=== PATIENT | male | born 1985 | race Caucasian/White ===

== ENCOUNTER 2023-09-27 02:02 | Emergency (ER) | payer SELFPAY ==
[2023-09-27 08:15] LABS: Albumin 3.2 g/dL (3.4-5.0); Albumin/Globulin Ratio 0.7 (1.1-1.8); Anion Gap 5.3 mEq/L (5.0-15.0); Bilirubin Total 0.5 mg/dL (0.2-1.0); Globulin 4.3 g/dL (2.3-3.5); Potassium 3.3 mEq/L (3.5-5.1); Protein, Total 7.5 g/dL (6.4-8.2)
[2023-09-27 08:33] LABS: Absolute Eosinophils 0.1 K/uL (0-0.5); Absolute Lymphocytes (CBC) 1.4 K/uL (0.7-4.9); Absolute Monocytes 0.9 K/uL (0.1-1.3); Absolute Neutrophil 6.6 K/uL (1.8-8.0); Basophils % 0.5 % (0-1.3); Eosinophils % 1.3 % (0-4.4); Hematocrit 36.4 % (39.6-49.0); Hemoglobin 13.1 g/dL (13.6-17.9); Lymphocytes % 15.7 % (15.3-44.8); MCH 30.6 pg (27.0-35.0); MCHC 36.1 g/dL (32.0-36.0); MPV 7.8 fL (7.6-11.3); Monocytes % 9.7 % (3.3-12.3); Neutrophils % 72.8 % (41.7-73.7); PTT, Activated Partial Thromb 32.2 SECONDS (24.3-36.9); Platelets 278 thou/uL (152-406); Protime INR 1.35; RBC Red Blood Cell Count 4.29 M/uL (4.33-5.43)
--- NOTE | 2023-09-27 17:05 | ER ---
Nurse's Notes [facility] Name: León Wayne Age: 37 yrs Sex: Male : 1985 Arrival Date: 09/27/2023 Time: 02:02 Bed 8 Private MD: Diagnosis: Cellulitis of right upper extremity Presentation: 09/26 02:05 Chief complaint: Patient states: ABSCESS TO RIGHT FOREARM STARTED LAST NIGHT. jj7 Coronavirus screen: At this time, the client does not indicate any symptoms associated with coronavirus-19. Ebola Screen: No symptoms or risks identified at this time. Initial Sepsis Screen: Does the patient meet any 2 criteria? HR > 90 bpm. Yes Does the patient have a suspected source of infection? No. Patient's initial sepsis screen is negative. Risk Assessment: Do you want to hurt yourself or someone else? Patient reports no desire to harm self or others. Onset of symptoms was September 26, 2023. 02:05 Method Of Arrival: Ambulatory j7 02:05 Acuity: GABINO 4 jj7 Triage Assessment: 02:09 General: Appears in no apparent distress. comfortable, Behavior is calm, cooperative, jj7 appropriate for age. Pain: Complains of pain in dorsal aspect of right forearm Pain currently is 6 out of 10 on a pain scale. Derm: Abscess located on dorsal aspect of right forearm. 02:20 Bite description: bite sustained to dorsal aspect of right forearm by insect, animal ha1 information: vaccination(s) is not applicable. Historical: - Allergies: 02:09 No Known Allergies; jj7 - PMHx: 02:09 None; jj7 - PSHx: 02:09 None; jj7 - Immunization history:: Adult Immunizations not up to date, Client reports having NOT received the Covid vaccine. Flu vaccine is up to date. - Infectious Disease History:: Denies. - Social history:: Smoking status: Reported history of juuling and/or vaping. Patient uses street drugs, marijuana, Patient/guardian denies using alcohol. - Family history:: not pertinent. Screenin:[address] [facility] ED Fall Risk Assessment (Adult) History of falling in the last 3 months, jj7 including since admission No falls in past 3 months (0 pts) Confusion or Disorientation No (0 pts) Intoxicated or Sedated No (0 pts) Impaired Gait No (0 pts) Mobility Assist Device Used No (0 pt) Altered Elimination No (0 pt) Score/Fall Risk Level 0 - 2 = Low Risk Oriented to surroundings, Maintained a safe environment, Educated pt \T\ family on fall prevention, incl call for assistance when getting out of bed. Abuse screen: Denies threats or abuse. Nutritional screening: No deficits noted. Tuberculosis screening: No symptoms or risk factors identified. Assessment: 02:12 General: Appears uncomfortable, Behavior is calm, cooperative. Pain: Complains of pain ha1 in right arm Pain does not radiate. Pain currently is 8 out of 10 on a pain scale. Quality of pain is described as aching. Neuro: Level of Consciousness is awake, alert, obeys commands, Oriented to person, place, time, situation. Cardiovascular: Capillary refill < 3 seconds Patient's skin is warm and dry. Respiratory: Airway is patent Respiratory effort is even, unlabored, Respiratory pattern is regular, symmetrical. GI: No signs and/or symptoms were reported involving the gastrointestinal system. Abdomen is flat, non-distended. Derm: Skin insect bite at the right forearm. swelling, redness. No drainage Skin is normal. 02:12 Musculoskeletal: Circulation, motion, and sensation intact. ha1 03:24 Reassessment: Patient appears in no apparent distress at this time. No changes from [facility] previously documented assessment. Patient and/or family updated on plan of care and expected duration. Pain level reassessed. Patient is alert, oriented x 3, equal unlabored respirations, skin warm/dry/pink. 04:30 Reassessment: Patient appears in no apparent distress at this time. No changes from [facility] previously documented assessment. Patient and/or family updated on plan of care and expected duration. Pain level reassessed. Patient is alert, oriented x 3, equal unlabored respirations, skin warm/dry/pink. 05:26 Reassessment: Patient appears in no apparent distress at this time. Patient and/or jw7 family updated on plan of care and expected duration. Pain level reassessed. Patient is alert, oriented x 3, equal unlabored respirations, skin warm/dry/pink. Patient states symptoms have improved. Vital Signs: 02:05 BP 114 / 76; Pulse 117; Resp 16; Temp 99.2; Pulse Ox 98% ; Weight 68.04 kg; Height 5 j ft. 10 in. ; Pain 6/10; 03:22 BP 120 / 67; Pulse 99; Resp 17 S; Pulse Ox 100% on R/A; ha1 04:00 BP 118 / 69; Pulse 90; Resp 19 S; Pulse Ox 98% on R/A; jw7 05:30 BP 120 / 68; Pulse 91; Resp 18 S; Temp 99.3(O); Pulse Ox 100% on R/A; jw7 02:05 Body Mass Index 21.52 (68.04 kg, 177.8 cm) jj7 02:05 Pain Scale: Adult [facility] ED Course: 02:02 Patient arrived in ED. jj6 02:08 Claudio Cuevas MD is Attending Physician. rt 02:09 Triage completed. jj7 02:09 Arm band placed on right wrist. jj7 02:12 Patient has correct armband on for positive identification. Placed in gown. Bed in low ha1 position. Call light in reach. Side rails up X 1. 02:30 Provided Education on: use of call light. jw7 02:45 Inserted saline lock: 20 gauge in left antecubital area, using aseptic technique. Blood ha1 collected. Flushed with 10 mL NS. 04:25 Gregor Vicente MD is Hospitalizing Provider. rt 04:52 No provider procedures requiring assistance completed. Patient admitted, IV remains in jw7 place. 05:47 IV discontinued, intact, bleeding controlled, No redness/swelling at site. Pressure jw7 dressing applied. Administered Medications: 03:01 Drug: vancoMYCIN IVPB 1 grams IVPB once over 2 hrs Route: IVPB; Infused Over: 2 hrs; jw7 Site: left antecubital; 05:47 Follow up: Response: No adverse reaction; IV Status: Completed infusion; IV Intake: jw7 250ml 03:01 Drug: Ketorolac IVP 15 mg IVP once Route: IVP; Site: left antecubital; jw7 04:51 Follow up: Response: No adverse reaction; Marked relief of symptoms; Pain is decreased jw7 03:01 Drug: NS 0.9% IV 1000 ml IV at 1 bolus Per protocol; 1000 mL bolus Route: IV; Rate: 1 jw7 bolus; Site: left antecubital; 04:51 Follow up: Response: No adverse reaction; IV Status: Completed infusion; IV Intake: jw7 1000ml 04:51 Drug: Nicoderm CQ Transdermal Patch 21 mg/24 hr 1 patches Transdermal once Route: jw7 Transdermal; Site: affected area; Medication: 02:11 VIS not applicable for this client. jj7 Intake: 04:51 IV: 1000ml; Total: 1000ml. jw7 05:47 IV: 250ml; Total: 1250ml. jw7 Outcome: 04:25 Decision to Hospitalize by Provider. rt 04:52 Admitted to ER Hold. Please see [facility] for further documentation. jw7 04:52 Condition: stable 04:52 Instructed on the need for admit, Demonstrated understanding of instructions, 05:26 Discharge ordered by MD. rt 05:46 Discharged to home ambulatory, jw7 05:46 Condition: stable 05:46 Discharge instructions given to patient, Instructed on discharge instructions, follow up and referral plans. medication usage, Demonstrated understanding of instructions, follow-up care, medications, 05:47 Patient left the ED. jw7 Signatures: Marine Reedj6 Rosa Aguirre RN RN jw7 Sandra Barnhart RN RN ha1 Rosalba Miranda RN RN jj7 Claudio Cuevas MD MD rt
--- NOTE | 2023-09-27 17:05 | EDPHYS ---
Physician Documentation [facility] Name: León Wayne Age: 37 yrs Sex: Male : 1985 Arrival Date: 09/27/2023 Time: 02:02 Bed 8 Private MD: ED Physician Claudio Cuevas HPI: 09/26 03:02 This 37 yrs old Male presents to ER via Ambulatory with complaints of Insect Bite. rt 03:02 Patient presents to the ED with reported abscess to the right forearm starting rt yesterday. Patient expressed a large amount of pus from it. States that today, he noticed significant proximal redness, swelling. Denies other acute complaints at this time, symptoms are moderate in severity, no other aggravating or alleviating factors.. Historical: - Allergies: 02:09 No Known Allergies; jj7 - PMHx: 02:09 None; jj7 - PSHx: 02:09 None; jj7 - Immunization history:: Adult Immunizations not up to date, Client reports having NOT received the Covid vaccine. Flu vaccine is up to date. - Infectious Disease History:: Denies. - Social history:: Smoking status: Reported history of juuling and/or vaping. Patient uses street drugs, marijuana, Patient/guardian denies using alcohol. - Family history:: not pertinent. ROS: 03:02 Constitutional: Negative for fever, chills, and weight loss, Cardiovascular: Negative rt for chest pain, palpitations, and edema, Respiratory: Negative for shortness of breath, cough, wheezing, and pleuritic chest pain, Abdomen/GI: Negative for abdominal pain, nausea, vomiting, diarrhea, and constipation, Neuro: Negative for headache, weakness, numbness, tingling, and seizure, 03:02 Skin: Positive for abscess, cellulitis, Exam: 03:02 Constitutional: This is a well developed, well nourished patient who is awake, alert, rt and in no acute distress. Head/Face: Normocephalic, atraumatic. Chest/axilla: Normal chest wall appearance and motion. Nontender with no deformity. No lesions are appreciated. Cardiovascular: Regular rate and rhythm with a normal S1 and S2. No gallops, murmurs, or rubs. Normal PMI, no JVD. No pulse deficits. Respiratory: Lungs have equal breath sounds bilaterally, clear to auscultation and percussion. No rales, rhonchi or wheezes noted. No increased work of breathing, no retractions or nasal flaring. Abdomen/GI: Soft, non-tender, with normal bowel sounds. No distension or tympany. No guarding or rebound. No evidence of tenderness throughout. Neuro: Awake and alert, GCS 15, oriented to person, place, time, and situation. Cranial nerves II-XII grossly intact. Motor strength 5/5 in all extremities. Sensory grossly intact. Cerebellar exam normal. Normal gait. 03:02 ECG was reviewed by the Attending Physician. 03:02 Skin: Apparently drained abscess to the right forearm, there is surrounding cellulitis involving most of the forearm. No fluctuance, signs of drainable abscess. Vital Signs: 02:05 BP 114 / 76; Pulse 117; Resp 16; Temp 99.2; Pulse Ox 98% ; Weight 68.04 kg; Height 5 jj7 ft. 10 in. ; Pain 6/10; 03:22 BP 120 / 67; Pulse 99; Resp 17 S; Pulse Ox 100% on R/A; ha1 04:00 BP 118 / 69; Pulse 90; Resp 19 S; Pulse Ox 98% on R/A; jw7 05:30 BP 120 / 68; Pulse 91; Resp 18 S; Temp 99.3(O); Pulse Ox 100% on R/A; jw7 02:05 Body Mass Index 21.52 (68.04 kg, 177.8 cm) jj7 02:05 Pain Scale: Adult jj7 Procedures: 03:02 Ultrasound: Type: Soft tissue skin, performed by the emergency department physician, rt Bedside ultrasound reveals cobblestoning, no drainable abscess. MDM: 02:13 Patient medically screened. rt 04:25 Differential Diagnosis Cellulitis, abscess. Data reviewed: vital signs, nurses notes, rt lab test result(s), EKG. Consideration of Admission/Observation Patient was admitted/placed on observation. Management of patient was discussed with the following: Hospitalist: Agrees to admit. I considered the following discharge prescriptions or medication management in the emergency department Medications were administered in the Emergency Department. See MAR. Test considered but Not performed: CT: Low suspicion for necrotizing fasciitis, CT scan not indicated. Care significantly affected by the following Social Determinants of Health: Misuse of alcohol and/or drugs. Counseling: I had a detailed discussion with the patient and/or guardian regarding the historical points, exam findings, and any diagnostic results supporting the discharge/admit diagnosis, lab results, the need for further work-up and treatment in the hospital. Response to treatment: the patient's symptoms have mildly improved after treatment. 05:27 ED course: Hospitalist consulted for admission, during that evaluation, patient stated rt that he did not wish stay in the hospital and had to gather things and take care of his child. Patient states that he will return once he is able to take care of some things at home, patient understands risks of leaving and has decision-making capacity.. 09/26 02:18 Order name: Accucheck; Complete Time: :34 rt 09/26 02:18 Order name: Cardiac monitoring; Complete Time: :34 rt 09/26 02:18 Order name: EKG - Nurse/Tech; Complete Time: :34 rt 09/26 02:18 Order name: IV Saline Lock - Large Bore; Complete Time: :34 rt 09/26 02:18 Order name: Labs collected and sent; Complete Time: :34 rt 09/26 02:18 Order name: O2 Per Protocol; Complete Time: 02:35 rt 09/26 02:18 Order name: O2 Sat Monitoring; Complete Time: :35 rt 09/26 02:18 Order name: Vital Signs; Complete Time: 02:35 rt EC:02 Rate is 104 beats/min. Rhythm is regular, Sinus tachycardia with No ectopy. QRS [place] is rt Normal. [place] interval is normal. QRS interval is normal. QT interval is normal. No Q waves. T waves are Normal. No ST changes noted. Administered Medications: 03:01 Drug: vancoMYCIN IVPB 1 grams IVPB once over 2 hrs Route: IVPB; Infused Over: 2 hrs; jw7 Site: left antecubital; 05:47 Follow up: Response: No adverse reaction; IV Status: Completed infusion; IV Intake: jw7 250ml 03:01 Drug: Ketorolac IVP 15 mg IVP once Route: IVP; Site: left antecubital; jw7 04:51 Follow up: Response: No adverse reaction; Marked relief of symptoms; Pain is decreased jw7 03:01 Drug: NS 0.9% IV 1000 ml IV at 1 bolus Per protocol; 1000 mL bolus Route: IV; Rate: 1 jw7 bolus; Site: left antecubital; 04:51 Follow up: Response: No adverse reaction; IV Status: Completed infusion; IV Intake: jw7 1000ml 04:51 Drug: Nicoderm CQ Transdermal Patch 21 mg/24 hr 1 patches Transdermal once Route: jw7 Transdermal; Site: affected area; Disposition Summary: 09/27/23 05:26 Discharge Ordered Notes: Location: Home(09/27/23 05:26) rt Problem: new(09/27/23 05:26) rt Symptoms: are unchanged(09/27/23 05:26) rt Condition: Stable(09/27/23 05:) rt Diagnosis - Cellulitis of right upper extremity rt Followup: rt - With: Private Physician - When: 2 - 3 days - Reason: Discharge Instructions: - Discharge Summary Sheet rt - Cellulitis, Adult rt Forms: - Medication Reconciliation Form rt - Antibiotic Education rt - Prescription Opioid Use rt - Patient Portal Instructions rt - Leadership Thank You Letter rt Prescriptions: - Doxycycline Hyclate 100 mg Oral Tablet - take 1 tablet ORAL route every 12 hours; 20 tablet; Refills: 0, Product rt Selection Permitted Signatures: Era Bravo RN RN vc1 Rosa Aguirre RN RN jw7 Rosalba Miranda RN RN jj7 Claudio Cuevas MD MD rt Corrections: (The following items were deleted from the chart) 04: 04:25 Telemetry/MedSurg (Inpatient) rt vc1 04:41 04:25 rt vc1 05: 04:25 Inpatient Admission rt rt 05: 04:25 Gregor Vicente rt rt 05: 04:25 Stable rt rt 05: 04:25 new rt rt 05: 04:25 are unchanged rt rt 05: 04:25 Standard rt rt 05: 04:25 Cellulitis to right upper extremity rt rt 05: 04:41 [facility] ER HOLD vc1 rt 05: 04:41 ERHOLD- vc1 rt
[2023-09-28 00:34] VITALS: BP 120/68; TEMP 99.3; O2SAT 100
--- NOTE | 2023-09-29 13:14 | EKG ---
Test Date: 2023-09-27 Test Time: 02:31:14 Relief Operator: ELIZABETH MEASUREMENT RESULTS: Intervals: Rate: 104 LA: 138 QRSD: 92 QT: 328 QTc: 431 [place]: P: 63 LA: 138 QRS: 103 T: 50 INTERPRETIVE STATEMENTS: Sinus tachycardia Otherwise normal ECG No previous ECG available for comparison Electronically Signed On 09-29-23 13:06:39 CDT by Antonio Lamb
== END 2023-09-27 05:47 | disposition home or self-care (01) ==
LOC: ER 02:02
DX: L03.113 Cellulitis of right upper limb (principal)
CPT/HCPCS: 36415; 80053; 83605; 85025; 85610; 85730; 87040; 93005; 96365; 96366; 96375; 99285

== ENCOUNTER 2023-09-28 18:38 | Emergency (ER) | payer SELFPAY ==
--- NOTE | 2023-09-28 19:59 | RAD REPORT ---
EXAM DESCRIPTION: RAD - Chest Single View - 09/28/2023 7:48 pm CLINICAL HISTORY: CHEST PAIN COMPARISON: No comparisons FINDINGS: Lines: None. Lungs: No evidence of edema or pneumonia. Pleural: No significant pleural effusions or pneumothorax. Cardiac: The heart size is within normal limits. Mediastinum: Within normal limits. Bones: No acute fractures. Other: None IMPRESSION: No acute cardiopulmonary disease.
[2023-09-28 21:01] LABS: Absolute Basophils 0.1 K/uL (0-0.5); Absolute Eosinophils 0.3 K/uL (0-0.5); Absolute Lymphocytes (CBC) 1.9 K/uL (0.7-4.9); Absolute Monocytes 0.8 K/uL (0.1-1.3); Absolute Neutrophil 6.3 K/uL (1.8-8.0); Basophils % 0.7 % (0-1.3); Eosinophils % 2.8 % (0-4.4); Hematocrit 36.4 % (39.6-49.0); Hemoglobin 12.4 g/dL (13.6-17.9); Lymphocytes % 20.3 % (15.3-44.8); MCH 29.5 pg (27.0-35.0); MCHC 34.2 g/dL (32.0-36.0); MCV 86.3 fL (80-100); MPV 7.3 fL (7.6-11.3); Monocytes % 8.5 % (3.3-12.3); Neutrophils % 67.7 % (41.7-73.7); Platelets 306 thou/uL (152-406); RBC Red Blood Cell Count 4.21 M/uL (4.33-5.43); Red Cell Distribution Width 12.9 % (12.1-15.2)
[2023-09-28] MEDS ORDERED: DOXYCYCLINE 100 MG CAP PO ONE (21:12)
[2023-09-28 21:37] LABS: BUN Blood Urea Nitrogen 7 mg/dL (7-18); Bicarbonate 30 mEq/L (21-32); Glomerular Filtration Rate 121 ml/min (=/>90); Glucose Level 103 mg/dL (74-106); NT PRO-BNP 193 pg/mL (<125); Sodium Level 135 mEq/L (136-145)
[2023-09-28 21:40] LABS: Troponin High Sensitivity < 3.0 pg/mL (<58.9)
[2023-09-28] MEDS ORDERED: POTASSIUM CL SA 10 MEQ TAB PO ONE (21:45)
--- NOTE | 2023-09-28 21:55 | EDPHYS ---
Physician Documentation [facility] Name: León Wayne Age: 37 yrs Sex: Male : 1985 Arrival Date: 09/28/2023 Time: 18:38 Bed 20 Private MD: ED Physician Niko Goel HPI: 09/27 19:01 This 37 yrs old Male presents to ER via Unassigned with complaints of Insect Bite. kb 19:03 Pt is a 37 year old male who presents for abscess to right forearm that started 4 days kb ago with erythema and swelling. States he was seen a couple of days ago and prescribed an antibiotic but hasn't been able to pick it up yet. States it started draining yesterday. Today he was taking a nap and woke up to a sharp pain in the right chest and felt like he couldn't breathe so he came in to be evaluated for that. . Historical: - Allergies: 19:06 No Known Allergies; cm10 - Home Meds: 19:06 None [Active]; cm10 - PMHx: 19:06 None; cm10 - PSHx: 19:06 None; cm10 - Immunization history:: Adult Immunizations up to date. - Infectious Disease History:: Denies. - Social history:: Smoking status: Patient reports the use of cigarette tobacco products, smokes one pack cigarettes per day. ROS: 19:01 Constitutional: As per HPI kb Exam: 19:01 Constitutional: This is a well developed, well nourished patient who is awake, alert, kb and in no acute distress. Head/Face: Normocephalic, atraumatic. ENT: Moist Mucous membranes Cardiovascular: Regular rate Respiratory: Respirations even and unlabored. No increased work of breathing. Talking in full sentences MS/ Extremity: Pulses equal, no cyanosis. Neurovascular intact. Full, normal range of motion. Neuro: Awake and alert, GCS 15, oriented to person, place, time, and situation. Moves all extremities. Normal gait. 19:01 Skin: abscess, that is moderate sized, of the right forearm, with drainage, with induration, with surrounding cellulitis, that is very mild, 21:24 ECG was reviewed by the Attending Physician. kb Vital Signs: 19:03 Weight 68.04 kg; Height 5 ft. 10 in. ; Pain 3/10; cm10 21:08 BP 101 / 76; Pulse 94; Resp 17; Pulse Ox 100% ; Pain 4/10; tm6 21:14 Temp 98.2(O); tm6 22:03 BP 107 / 76; Pulse 92; Resp 17; Temp 98.2; Pulse Ox 100% on R/A; Pain 0/10; tm6 19:03 Body Mass Index 21.52 (68.04 kg, 177.8 cm) cm10 19:03 Pain Scale: Adult cm10 21:08 Pain Scale: Adult tm6 22:03 Pain Scale: Adult tm6 MDM: 18:58 Patient medically screened. kb 19:02 Differential diagnosis: abscess, allergic reaction, cellulitis, insect bite. Data kb reviewed: vital signs, nurses notes. 21:54 Counseling: I had a detailed discussion with the patient and/or guardian regarding the kb historical points, exam findings, and any diagnostic results supporting the discharge/admit diagnosis, lab results, radiology results, the need for outpatient follow up, a family practitioner, to return to the emergency department if symptoms worsen or persist or if there are any questions or concerns that arise at home. ED course: Pt educated to orange picker and take antibiotics previously prescribed. . 09/27 19:10 Order name: CBC with Diff; Complete Time: 21:10 kb 09/27 19:10 Order name: Basic Metabolic Panel; Complete Time: 21:40 kb 09/27 19:10 Order name: Troponin High Sensitivity; Complete Time: 21:40 kb 09/27 19:10 Order name: BNP; Complete Time: 21:40 kb 09/27 19:10 Order name: Chest Single View XRAY; Complete Time: 20:05 kb 09/27 19:10 Order name: EKG; Complete Time: 19:11 kb 09/27 19:10 Order name: IV Start; Complete Time: 21:10 kb 09/27 19:10 Order name: EKG - Nurse/Tech; Complete Time: 21:07 kb EC:24 Rate is 96 beats/min. Rhythm is regular. QRS [place] is Normal. [place] interval is normal at kb 136 msec. QRS interval is normal at 86 msec. QT interval is normal at 429 msec. Administered Medications: 21:14 Drug: Doxycycline PO 100 mg PO once Route: PO; tm6 21:48 Drug: Potassium Chloride PO 40 mEq PO once Route: PO; tm6 Disposition Summary: 09/28/23 21:55 Discharge Ordered Notes: Location: Home kb Condition: Stable kb Diagnosis - Cutaneous abscess of right upper limb kb Followup: kb - With: Emergency Department - When: As needed - Reason: Worsening of condition Followup: kb - With: Private Physician - When: 2 - 3 days - Reason: Recheck today's complaints, Continuance of care, Re-evaluation by your physician Discharge Instructions: - Discharge Summary Sheet kb - Skin Abscess, [id number] kb Forms: - Medication Reconciliation Form kb - Antibiotic Education kb - Prescription Opioid Use kb - Patient Portal Instructions kb - Leadership Thank You Letter kb Signatures: Dispatcher [employer] EDAZ Ericka Davis, DOMENICA-C MARINE ENGINE MACHINIST-Olga Dee, RN RN cm10 Catarino Lowe RN RN tm6 Corrections: (The following items were deleted from the chart) 19:11 19:11 Chest Single View+[email or web address] ordered. EDAZ EDAZ 21:55 19:01 Skin: abscess, that is moderate sized, of the right forearm, kb kb
--- NOTE | 2023-09-28 21:55 | ER ---
Nurse's Notes [facility] Name: León Wayne Age: 37 yrs Sex: Male : 1985 Arrival Date: 09/28/2023 Time: 18:38 Bed 20 Private MD: Diagnosis: Cutaneous abscess of right upper limb Presentation: 09/27 19:03 Chief complaint: Patient states: Insect bite to right lower arm onset 4 days ago. Pt cm10 noted have redness and swelling to right lower arm. Pt also reports ankle swelling X2 weeks. Pt also reports having an episode of chest pain. Coronavirus screen: Client denies travel out of the [place] in the last 14 days. At this time, the client does not indicate any symptoms associated with coronavirus-19. Ebola Screen: Patient denies travel to an Ebola-affected area in the 21 days before illness onset. No symptoms or risks identified at this time. Initial Sepsis Screen: Does the patient meet any 2 criteria? No. Patient's initial sepsis screen is negative. Does the patient have a suspected source of infection? No. Patient's initial sepsis screen is negative. Risk Assessment: Do you want to hurt yourself or someone else? Patient reports no desire to harm self or others. Onset of symptoms was September 28, 2023. 19:03 Method Of Arrival: Ambulatory cm10 19:03 Acuity: GABINO 3 cm10 Triage Assessment: 19:07 General: Appears in no apparent distress. comfortable, Behavior is calm, cooperative. cm10 Neuro: No deficits noted. Level of Consciousness is awake, alert, obeys commands, Oriented to person, place, time, situation, Appropriate for age. Historical: - Allergies: 19:06 No Known Allergies; cm10 - Home Meds: 19:06 None [Active]; cm10 - PMHx: 19:06 None; cm10 - PSHx: 19:06 None; cm10 - Immunization history:: Adult Immunizations up to date. - Infectious Disease History:: Denies. - Social history:: Smoking status: Patient reports the use of cigarette tobacco products, smokes one pack cigarettes per day. Screenin:08 [facility] ED Fall Risk Assessment (Adult) History of falling in the last 3 months, tm6 including since admission No falls in past 3 months (0 pts) Confusion or Disorientation No (0 pts) Intoxicated or Sedated No (0 pts) Impaired Gait No (0 pts) Mobility Assist Device Used No (0 pt) Altered Elimination No (0 pt) Score/Fall Risk Level 0 - 2 = Low Risk Oriented to surroundings, Maintained a safe environment, Educated pt \T\ family on fall prevention, incl call for assistance when getting out of bed. Abuse screen: Denies threats or abuse. Denies injuries from another. Nutritional screening: No deficits noted. Tuberculosis screening: No symptoms or risk factors identified. Assessment: 21:08 General: Appears in no apparent distress. Behavior is calm, cooperative. Pain: tm6 Complains of pain in right arm and right forearm Pain does not radiate. Pain currently is 4 out of 10 on a pain scale. Neuro: No deficits noted. Level of Consciousness is awake, alert, obeys commands, Oriented to person, place, time, situation. Cardiovascular: No deficits noted. Patient's skin is warm and dry. Respiratory: Airway is patent Respiratory effort is even, unlabored, Respiratory pattern is regular, symmetrical. GI: No signs and/or symptoms were reported involving the gastrointestinal system. Abdomen is flat, non-distended. : No signs and/or symptoms were reported regarding the genitourinary system. EENT: No signs and/or symptoms were reported regarding the EENT system. Derm: Skin has lesions on right forearm Skin is red. Musculoskeletal: No signs and/or symptoms reported regarding the musculoskeletal system. 22:04 Reassessment: Patient appears in no apparent distress at this time. Patient and/or tm6 family updated on plan of care and expected duration. Pain level reassessed. Patient is alert, oriented x 3, equal unlabored respirations, skin warm/dry/pink. Vital Signs: 19:03 Weight 68.04 kg; Height 5 ft. 10 in. ; Pain 3/10; cm10 21:08 BP 101 / 76; Pulse 94; Resp 17; Pulse Ox 100% ; Pain 4/10; tm6 21:14 Temp 98.2(O); tm6 22:03 BP 107 / 76; Pulse 92; Resp 17; Temp 98.2; Pulse Ox 100% on R/A; Pain 0/10; tm6 19:03 Body Mass Index 21.52 (68.04 kg, 177.8 cm) cm10 19:03 Pain Scale: Adult cm10 21:08 Pain Scale: Adult tm6 22:03 Pain Scale: Adult tm6 ED Course: 18:58 Patient arrived in ED. im 18:58 Ericka Davis FNP-C is [facility]. kb 18:58 Niko Goel MD is Attending Physician. kb 19:06 Triage completed. cm10 19:07 Arm band placed on Patient placed in waiting room. cm10 19:50 Chest Single View XRAY In Process Unspecified. EDMS 20:49 EKG done, by ED staff, reviewed by Ericka SAMSON. oe 20:51 Inserted saline lock: 20 gauge in left antecubital area, using aseptic technique. Blood oe collected. Flushed with 10 mL NS. 21:03 Catarino Lowe, RN is Primary Nurse. tm6 21:08 Patient has correct armband on for positive identification. Placed in gown. Bed in low tm6 position. Call light in reach. Side rails up X 1. Provided Education on: use of call brock. Client placed on continuous cardiac and pulse oximetry monitoring. NIBP monitoring applied. Pulse ox on. NIBP on. Door closed. Noise minimized. Warm blanket given. 22:04 No provider procedures requiring assistance completed. IV discontinued, intact, tm6 bleeding controlled, No redness/swelling at site. Pressure dressing applied. Administered Medications: 21:14 Drug: Doxycycline PO 100 mg PO once Route: PO; tm6 21:48 Drug: Potassium Chloride PO 40 mEq PO once Route: PO; tm6 Medication: 21:08 VIS not applicable for this client. tm6 Outcome: 21:55 Discharge ordered by . kb 22:04 Discharged to home ambulatory, tm6 22:04 Condition: stable 22:04 Discharge instructions given to patient, Instructed on discharge instructions, follow up and referral plans. Demonstrated understanding of instructions, follow-up care, 22:04 Patient left the ED. tm6 Signatures: Dispatcher [employer] EDMS Ercika Davis FNP-C FNP-Ckb Espinosa, Orlando oe Mendoza, Itzel im Martinez, Clarissa, RN RN cm10 Catarino Lowe, ANGELO RN tm6
[2023-09-28 22:18] VITALS: O2SAT 100
[2023-09-28 22:19] VITALS: TEMP 98.2
[2023-09-28 22:20] VITALS: BP 107/76
--- NOTE | 2023-09-29 13:06 | EKG ---
Test Date: 2023-09-28 Test Time: 20:43:54 Clinical Quality Manager: TAB MEASUREMENT RESULTS: Intervals: Rate: 96 TX: 136 QRSD: 86 QT: 340 QTc: 429 [place]: P: 79 TX: 136 QRS: 104 T: 77 INTERPRETIVE STATEMENTS: Normal sinus rhythm Rightward axis Borderline ECG Compared to ECG 09/27/2023 02:31:14 Right-axis deviation now present Sinus tachycardia no longer present Electronically Signed On 09-29-23 13:05:01 CDT by Antonio Lamb
== END 2023-09-28 22:04 | disposition home or self-care (01) ==
LOC: ER 18:38
DX: L03.113 Cellulitis of right upper limb (principal)
CPT/HCPCS: 36415; 71045; 80048; 83880; 84484; 85025; 93005